=== PATIENT | male | born 1940 | race Caucasian/White ===

== ENCOUNTER 2018-04-01 11:57 | Emergency (ER) | payer MEDICARE, BC ==
[2006-06-20 06:35] VITALS: BP 149/59
[~2018-04-01] VITALS: Ht 67 cm; Wt 86.4 kg
[2018-04-01 11:57] VITALS: TEMP 97.9
[2018-04-01] MEDS ORDERED: SYNTHROID0.175 MG PO (12:14)
[2018-04-01] MEDS ORDERED: BENICAR HCT 251 TAB PO (12:14)
[2018-04-01] MEDS ORDERED: CELEXA 20MG20 MG/TAB PO (12:15)
[2018-04-01 12:18] LABS: BASO % 0.2 % (0.0-2.0); EOS # 0.1 (0.0-0.7); EOS % 2.2 % (0-4.0); GRAN # 4.1 (1.4-6.5); HEMATOCRIT 43.8 % (42.0-52.0); HEMOGLOBIN 15.4 g/dl (13.5-18.0); LYMPH # 1.5 (1.2-3.4); LYMPH % 23.3 % (20.0-51.0); MEAN CELL VOLUME 89 fl (80.0-100.0); MEAN CORPUSCULAR HEMOGLOBIN 31 pg (27.0-31.0); MEAN CORPUSCULAR HGB CONC 35 g/dl (33.0-37.0); MEAN PLATELET VOLUME 9.4 fl (7.4-10.4); MONO # 0.6 (0.1-0.6); MONO % 9.8 % (1.7-9.3); PLATELET COUNT 253 K/mm3 (130-400); REDCELL DISTRIBUTION WIDTH-CV 12.9 % (11.5-14.5)
[2018-04-01 12:20] LABS: PROTHROMBIN TIME 11.8 SECONDS (9.7-12.8)
[2018-04-01 12:22] LABS: PARTIAL THROMBOPLASTIN TIME 33.3 SECONDS (26.0-37.0)
[2018-04-01 13:00] LABS: TROPONIN-I < 0.012 ng/mL (0.000-0.034)
[2018-04-01 13:25] VITALS: BP 143/78
[2018-04-01 13:33] LABS: ALANINE AMINOTRANSFERASE 25 U/L (21-72); ALKALINE PHOSPHATASE 73 U/L (50-136); ANION GAP 12 mmol/L (7-16); AST,SGOT 28 U/L (15-37); BILIRUBIN,TOTAL 0.7 mg/dL (0.0-1.0); BLOOD UREA NITROGEN 28 mg/dL (9-20); CARBON DIOXIDE 20 mmol/L (22-30); CHLORIDE 103 mmol/L (98-107); CREATINE KINASE 47 U/L (55-170); CREATININE, serum 1.22 mg/dL (0.66-1.25); GLUCOSE 113 mg/dL (74-106); POTASSIUM 4.4 mmol/L (3.4-5.0); SODIUM 135 mmol/L (137-145)
[2018-04-01 15:09] VITALS: PULSE 58
== END 2018-04-01 15:09 | disposition home or self-care (01) ==
LOC: COL.ER 11:57
PROVIDERS: Emergency Medicine
DX: R55 Syncope and collapse (principal); I12.9 Hypertensive chronic kidney disease with stage 1 through stage 4 chronic kidney disease, or unspecified chronic kidney disease; N18.3 Chronic kidney disease, stage 3 (moderate); Z85.46 Personal history of malignant neoplasm of prostate
CPT/HCPCS: J7030

== ENCOUNTER 2019-07-29 21:55 | Emergency (ER) | payer MEDICARE, BC ==
[2006-06-20 06:35] VITALS: BP 149/59
[~2019-07-29] VITALS: Ht 170.2 cm; Wt 86.4 kg
[~2019-07-29 21:55] MED LIST: BENICAR HCT 251 TAB PO; CELEXA 20MG20 MG/TAB PO; SYNTHROID0.175 MG PO
[2019-07-29 22:00] VITALS: BP 178/72; TEMP 98.2
[2019-07-29] MEDS ORDERED: PRINZIDE 25 MG-1 TAB PO (22:13)
[2019-07-29] MEDS ORDERED: SINGULAIR 5M5 MG/TAB PO (22:14)
[2019-07-29] MEDS ORDERED: RT ADVAIR 228 DISKUS IH (22:14)
[2019-07-29] MEDS ORDERED: NORVASC 5MG5 MG/TAB PO ×2 (22:14→22:15)
[2019-07-29] MEDS ORDERED: VOLTAREN 75 DR75 MG PO (22:40)
[2019-07-29 22:57] VITALS: PULSE 71
== END 2019-07-29 22:57 | disposition home or self-care (01) ==
LOC: COL.ER 21:55
DX: S86.812A Strain of other muscle(s) and tendon(s) at lower leg level, left leg, initial encounter (principal); M17.12 Unilateral primary osteoarthritis, left knee; I10 Essential (primary) hypertension; Z79.51 Long term (current) use of inhaled steroids; X58.XXXA Exposure to other specified factors, initial encounter
CPT/HCPCS: J1885